=== PATIENT | female | born 1940 | race American Indian/Alaskan Native ===

== ENCOUNTER 2018-01-14 14:37 | Emergency (ER) | payer MEDICARE ==
[2018-01-14 14:37] VITALS: BMI 21.2
[2018-01-14 14:55] VITALS: BP 132/68; PULSE 53; RESP 18; TEMP 98.1; O2SAT 97
--- NOTE | 2018-01-14 15:26 | C.PDOC ---
History Of Present Illness Patient is a 77 year old female with past medical history of hypertension, osteoporosis, Breast cancer presents to the ED for Left hand pain, itchiness and swelling. Patient states that symptoms started 5-6 years ago and intermittently occur every 2-3 months. She reports that she experiences these symptoms in her hands, feet, arms. States that she has gone to her PMD about these complaints but was referred to see a chair and couch maker. Patient denies any exacerbating factors, she uses topical antibiotics/steroids with some improvement. She washes her hands with brown soap and applies Eucerin with relief as well. Denies headaches, dizziness, cp, palpitations, sob, abdominal pain, urinary symptoms, changes in bowel habits. Time Seen by Provider: 01/14/18 14:57 Chief Complaint (Nursing): Finger,Hand,&Wrist Past Medical History Vital Signs: Last Vital Signs Temp 98.1 F 01/14/18 14:52 Pulse 53 L 01/14/18 14:52 Resp 18 01/14/18 15:48 BP 132/68 01/14/18 14:52 Pulse Ox 97 01/14/18 17:19 - Medical History PMH: HTN Denies: Chronic Kidney Disease Other Surgeries: Mastectomy - [facility] LOCAL EXCIS BREAST LES (01/16/13) UNILAT EXTEN SIMP MASTEC (02/06/13) Family History: States: Unknown Family Hx - Social History Hx Tobacco Use: No Hx Alcohol Use: Yes Hx Substance Use: No - Immunization History Hx Tetanus Toxoid Vaccination: No Hx Influenza Vaccination: No Hx Pneumococcal Vaccination: No Review Of Systems Constitutional: Negative for: Fever, Chills, Weakness, Malaise Eyes: Negative for: Pain, Vision Change Cardiovascular: Negative for: Chest Pain, Palpitations Respiratory: Negative for: Cough, Shortness of Breath, Wheezing Gastrointestinal: Negative for: Nausea, Vomiting, Abdominal Pain Musculoskeletal: Positive for: Hand Pain. Negative for: Leg Pain, Foot Pain Skin: Negative for: Rash, Jaundice, Bruising Neurological: Negative for: Weakness, Numbness, Headache, Dizziness Physical Exam - Physical Exam Appears: Well, No Acute Distress Skin: Normal Color, Warm, Dry Head: Atraumatic, Normacephalic Eye(s): bilateral: Normal Inspection Cardiovascular: Rhythm Regular Respiratory: Normal Breath Sounds Gastrointestinal/Abdominal: Normal Exam, Soft, No Tenderness Extremity: Other (Left hand: palmar surface of hand is erythematous, warm to touch, full ROM) ED Course And Treatment O2 Sat by Pulse Oximetry: 97 Disposition - Disposition Referrals: Rosalva Bangura MD [Non-Staff] - Norm Sanchez MD [Staff Provider] - Disposition: HOME/ ROUTINE Disposition Time: 15:15 Condition: GOOD Additional Instructions: FOLLOW UP WITH YOUR DOCTOR IN 1-2 DAYS FOLLOW UP WITH MEDICATION AIDE WITHIN 1 WEEK RETURN TO ER IF SYMPTOMS WORSEN Prescriptions: Loratadine [Claritin] 10 mg PO DAILY PRN #30 tab PRN Reason: Itching / Pruritus Instructions: Itchy Skin Forms: General Discharge Instructions, [facility] (Faroese) Print Language: PORTUGUESE - Clinical Impression Clinical Impression: Pruritic condition
== END 2018-01-14 15:49 | disposition home or self-care (01) ==
LOC: C.ER 14:37
DX: L29.9 Pruritus, unspecified (principal)